=== PATIENT | female | born 1995 | race Caucasian/White ===

== ENCOUNTER 2020-03-21 15:43 | Emergency (ER) | payer OTHER, SELFPAY ==
--- NOTE | ~2020-03-21 | XR_ITS ---
EXAMINATION: XR ankle RT min 3V DATE: 03/21/2020 16:15 INDICATION: Lateral sided right ankle pain and swelling TECHNIQUE: Anteroposterior, oblique, mortise, and lateral views of the right ankle were obtained. COMPARISON: None. FINDINGS: Alignment is normal. No fracture. Joint spaces are well maintained. No ankle joint effusion. Mild s oft tissue swelling of the dorsum of the midfoot. IMPRESSION: 1. No osseous abnormality. Reviewed, dictated and finalized at location A. IMPRESSION: 1. No osseous abnormality.
[2020-03-21 15:48] VITALS: BP 143/94; PULSE 110; RESP 18; TEMP 36.6; O2SAT 98
--- NOTE | 2020-03-21 16:01 | ED.GENADULT ---
HPI - General Adult General Chief complaint: Extremity Injury, Lower Stated complaint: right ankle injury Time Seen by Provider: 03/21/20 15:44 Source: patient Mode of arrival: ambulatory Limitations: no limitations History of Present Illness HPI narrative: Patient is a 24-year-old female who presents to emergency department for evaluation of right ankle pain laterally that began after rolling the ankle just prior to arrival while walking normal patient denies other injuries or complaints has not taken anything for pain denies radicular symptoms or paresthesias. And is otherwise resting comfortably in the room in no distress upon arrival Related Data Allergies Allergy/AdvReac Type Severity Reaction Status Date / Time No Known Allergies Allergy Verified 03/21/20 15:49 Review of Systems Review of Systems: All systems reviewed & are unremarkable except as noted in HPI and below PMFSH Social History Social History (Updated 03/21/20 @ 16:03 by lAli Sam PA-C) Smoking status: Never smoker Gender identity (if verbalized by the patient): Female Exam Narrative: Exam Narrative: GENERAL: Well-appearing, well-nourished, and in no acute distress. HEAD: Normocephalic, atraumatic. EYES: PERRLA and EOMI. ENT: Nares clear, no rhinorrhea or epistaxis. Mucous membranes moist. EXTREMITIES: Normal range of motion. No edema. Tenderness of the lateral aspect of the right ankle no deformity noted SKIN: Warm, dry, no rash. NEURO: No focal deficits. Alert and oriented x3. Neurovascularly intact. Capillary refill less than 2 seconds PSYCH: Normal mood and affect. Course Vital Signs Vital signs: Vital Signs Temperature 97.9 F 03/21/20 15:48 Pulse Rate 110 H 03/21/20 15:48 Respiratory Rate 18 03/21/20 15:48 Blood Pressure 143/94 H 03/21/20 15:48 Pulse Oximetry 98 03/21/20 15:48 Temperature 97.9 F 03/21/20 15:48 Pulse Rate 110 H 03/21/20 15:48 Respiratory Rate 18 03/21/20 15:48 Blood Pressure 143/94 H 03/21/20 15:48 Pulse Oximetry 98 03/21/20 15:48 Medical Decision Making MDM Narrative Medical decision making narrative: Patients injury or pain is consistent with musculoskeletal etiology. No signs of neurological or vascular compromise on exam. Compartments and tisues are soft without signs of compartment syndrome. Pain is felt appropriate for further evaluation on an outpatient basis. Vital Signs Vital Signs: Vital Signs Temperature 97.9 F 03/21/20 15:48 Pulse Rate 110 H 03/21/20 15:48 Respiratory Rate 18 03/21/20 15:48 Blood Pressure 143/94 H 03/21/20 15:48 Pulse Oximetry 98 03/21/20 15:48 Temperature 97.9 F 03/21/20 15:48 Pulse Rate 110 H 03/21/20 15:48 Respiratory Rate 18 03/21/20 15:48 Blood Pressure 143/94 H 03/21/20 15:48 Pulse Oximetry 98 03/21/20 15:48 Imaging Data Radiologist's impression: ITS Impressions Ankle X-Ray 03/21/20 16:21 IMPRESSION: 1. No osseous abnormality. Discharge Plan Discharge Clinical Impression: Ankle sprain and strain Patient Disposition: Home, Self-Care Condition: Stable Instructions: Antibiotic Form, Ankle Sprain (ED) Additional Instructions: Wear Rony wrap with limited weight on the affected leg until able to bear weight without pain. Ice and elevate extremity. Pain medication as needed and directed. Follow up with your doctor for further care in the next 7 days. Return if symptoms worsen or concerns Follow-up/Referrals: UNKNOWN,DOCTOR [Primary Care Provider] - Laureano Michel MD [Physician] - Stand Alone Forms: Work/School Release IP
[2020-03-21] MEDS: IBUPROFEN 600 MG TABLET PO (16:06)
== END 2020-03-21 17:05 | disposition home or self-care (01) ==
PROVIDERS: Emergency Provider Emergency Medicine
DX: S93.401A Sprain of unspecified ligament of right ankle, initial encounter (principal); S96.911A Strain of unspecified muscle and tendon at ankle and foot level, right foot, initial encounter; X50.9XXA Other and unspecified overexertion or strenuous movements or postures, initial encounter
CPT/HCPCS: 73610; 99283; A9270

== ENCOUNTER 2023-02-23 13:34 | Emergency (ER) | payer BC, SELFPAY ==
--- NOTE | ~2023-02-23 | XR_ITS ---
AP view of the pelvis and AP and lateral views of the left hip Clinical history: Pain Findings: No acute fracture or dislocation is seen. Osseous alignment is anatomic. Bilateral hip and SI joint spaces are preserved. Soft tissues are unremarkable. Impression: No significant abnormality is seen. Reviewed, dictated and finalized at [facility]. Impression: No significant abnormality is seen.
[2023-02-23 13:42] VITALS: BP 116/64; PULSE 95; RESP 16; TEMP 36.9; O2SAT 99
[2023-02-23 15:22] LABS: Appearance Urine Cloudy (Clear); Bacteria Urine Rare /hpf; Bilirubin Urine Negative (Negative); Blood Urine Negative (Negative); Color Urine Yellow (Yellow); Glucose Urine UA Negative (Negative); Ketones Urine Trace mg/dL (Negative); Leukocyte Esterase Ur Negative LEU/UL (Negative); Nitrate Urine Negative (Negative); Non Pathogenic Casts 0-2; Protein Urine Negative (Negative); RBC Urine 0-2 /hpf (0-2); Squamous Epithelial Cell Urine Few /hpf (Few); WBC Urine 0-5 /hpf
[2023-02-23 15:26] LABS: Add Urine Microscopic? YES; Specific Grav Ur 1.039 (1.001-1.035)
[2023-02-23 15:32] VITALS: BP 110/76; PULSE 71; RESP 16; O2SAT 99
[2023-02-23 15:32] LABS: Basophils Absolute Auto 0.1 K/mm3 (0.0-0.1); Basophils Percent Auto 0.3 % (0.2-1.2); Eosinophils Absolute Auto 0.1 K/mm3 (0-0.3); Eosinophils Percent Auto 0.5 % (0-4.4); Hematocrit 34.2 % (37.0-47.0); Hemoglobin 11.3 g/dL (12.0-15.0); Immature Granulocyte Absolute 0.13 K/mm3 (0.00-0.031); Immature Granulocyte Percent A 0.9 % (0-0.5); Lymphocytes Absolute Auto 4.06 K/mm3 (0.9-3.2); Lymphocytes Percent Auto 27.1 % (18.3-44.2); Mean Corpuscular Hemoglobin 29.7 pg (26-34); Mean Platelet Volume 9.8 fl (7.4-10.4); Monocytes Absolute Auto 0.9 K/mm3 (0.1-0.6); Monocytes Percent Auto 5.9 % (2.6-8.5); Neutrophils Absolute Auto 9.8 K/mm3 (1.3-6.7); Neutrophils Percent Auto 65.3 % (45.5-73.1); Platelet Count Result 410 k/mm3 (150-375); Red Cell Distribution Width 12.8 % (11.5-14.5)
[2023-02-23 15:41] LABS: Anion Gap 8 mmol/L (8-16); Blood Urea Nitrogen 22 mg/dL (7-17); Calcium 8.1 mg/dL (8.4-10.2); Carbon Dioxide 26 mmol/L (22-30); Chloride 103 mmol/L (98-107); Estimated CRCL calculation 136 ml/min; Estimated Glomerular Filt Rate > 60; Glucose 92 mg/dL (65-110); Potassium 3.5 mmol/L (3.4-5.0); Sodium 137 mmol/L (137-145)
--- NOTE | 2023-02-23 17:07 | ED.LOWEXIN ---
HPI - Extremity Injury (Lower) General Chief Complaint: Extremity Injury, Lower Stated Complaint: left leg pain, no known injury Time Seen by Provider: 02/23/23 13:51 Source: patient Mode of arrival: ambulatory Limitations: no limitations History of Present Illness HPI Narrative: 27-year-old otherwise healthy here with complaints of left groin pain for past 1 week. Patient states that while she was at work she started having pain and its been ongoing since then. She states that she has seen her doctor was given pain medication with very minimal relief. She denies any fall. No previous history of hip injuries. complaint: other (Left groin pain) Onset (ago): week(s) Type of Injury: unknown Place: work Severity: moderate Relieving factors: nothing Exacerbating factors: nothing Other symptoms: none Related Data Allergies Allergy/AdvReac Type Severity Reaction Status Date / Time No Known Allergies Allergy Verified 02/23/23 13:52 Review of Systems Review of Systems: All systems reviewed & are unremarkable except as noted in HPI and below Constitutional: Constitutional: Reports no additional constitutional complaints Eyes: Eyes: Reports no additional eye complaints ENT: Reports system reviewed and no additional complaints, except as documented Cardiovascular: Cardiovascular: Reports no additional cardiovascular complaints Respiratory: Respiratory: Reports no additional respiratory complaints Musculoskeletal: Musculoskeletal: Reports as per HPI [facility] Social History Social History Smoking status: Never smoker Gender identity (if verbalized by the patient): Female Exam Narrative: GENERAL: Well-appearing, well-nourished, and in no acute distress. HEAD: Normocephalic, atraumatic. EYES: PERRLA and EOMI. NECK: Supple. CHEST: Clear to auscultation. No respiratory distress. HEART: Regular rate and rhythm. No murmur heard. Normal peripheral pulses. ABDOMEN: Soft, nontender, nondistended, normal active bowel sounds. EXTREMITIES: Normal range of motion. No edema. Pain and tenderness on palpation in the left inguinal area no masses felt SKIN: Warm, dry, no rash. NEURO: No focal deficits. Alert and oriented x3. PSYCH: Normal mood and affect. Course Course Emergency Course: Notified patient about her lab work and x-ray findings appears to be more groin strain advised her to take pain medication as prescribed. Vital Signs Vital signs: Vital Signs Temperature 36.9 C 02/23/23 13:42 Pulse Rate 95 02/23/23 13:42 Respiratory Rate 16 02/23/23 13:42 Blood Pressure 116/64 02/23/23 13:42 Pulse Oximetry 99 02/23/23 13:42 Oxygen Delivery Room Air 02/23/23 13:42 Temperature 36.9 C 02/23/23 13:42 Pulse Rate 71 02/23/23 15:32 Respiratory Rate 16 02/23/23 15:32 Blood Pressure 110/76 02/23/23 15:32 Pulse Oximetry 99 02/23/23 15:32 Oxygen Delivery Room Air 02/23/23 13:42 MDM - Extremity Injury (Lower) Differential Diagnosis Differential diagnosis: Likely fracture of hip Lab Data 02/23/23 15:10 02/23/23 15:10 Labs: Lab Results 02/23/23 02/23/23 Range/Units 15:08 15:10 WBC 15.0 H (4.5-10.0) K/mm3 RBC 3.80 L (4.2-5.4) M/mm3 Hgb 11.3 L (12.0-15.0) g/dL Hct 34.2 L (37.0-47.0) % MCV 90.0 (80-100) fl MCH 29.7 (26-34) pg MCHC 33.0 (32-36) g/dl RDW 12.8 (11.5-14.5) % Plt Count 410 H (150-375) k/mm3 MPV 9.8 (7.4-10.4) fl Immature Gran % (Auto) 0.9 H (0-0.5) % Neut % (Auto) 65.3 (45.5-73.1) % Lymph % (Auto) 27.1 (18.3-44.2) % Coffey % (Auto) 5.9 (2.6-8.5) % Eos % (Auto) 0.5 (0-4.4) % Baso % (Auto) 0.3 (0.2-1.2) % Lymph # (Auto) 4.06 H (0.9-3.2) K/mm3 Coffey # (Auto) 0.9 H (0.1-0.6) K/mm3 Eos # (Auto) 0.1 (0-0.3) K/mm3 Baso # (Auto) 0.1 (0.0-0.1) K/mm3 Abs Immat Gran (auto) 0.13 H (0.00-0.031) K/mm3 Abs
[2023-02-23 17:35] VITALS: RESP 16; O2SAT 97
== END 2023-02-23 17:36 | disposition home or self-care (01) ==
PROVIDERS: Emergency Provider Family Medicine; PCP Physician Assistant
DX: S39.011A Strain of muscle, fascia and tendon of abdomen, initial encounter (principal); X58.XXXA Exposure to other specified factors, initial encounter
CPT/HCPCS: 36415; 73502; 80048; 81001; 85025; 99283

== ENCOUNTER 2025-07-16 16:02 | Emergency (ER) | payer OTHER, SELFPAY ==
--- NOTE | ~2025-07-16 | XR_ITS ---
EXAMINATION: XR hand RT min 3V DATE: 07/16/2025 16:30 INDICATION: Right hand pain from punching a wall TECHNIQUE: 3 images of the right hand were obtained COMPARISON: None. FINDINGS: Questionable tiny triquetral fracture of indeterminate age. No other possible fracture identified. Mild joint space narrowing in the first metacarpophalangeal joint. [ No radiopaque foreign body.] [ No sclerotic bone lesions.] Soft tissue swelling about the right hand. 5 mm lucency in the head of the third metacarpal. IMPRESSION: 1. Questionable tiny triquetral fracture of indeterminate age. Correlate for point tenderness. 2. No other possible fracture identified. If symptoms persist or worsen consider a short-term follow-up study or additional imaging for further assessment. Reviewed, dictated and finalized at location Q. IMPRESSION: 1. Questionable tiny triquetral fracture of indeterminate age. Correlate for po int tenderness. 2. No other possible fracture identified. If symptoms persist or worsen consider a short-term follow-up study or addition al imaging for further assessment.
[2025-07-16 16:11] VITALS: BP 124/89; PULSE 105; RESP 20; TEMP 36.2; O2SAT 100
--- OUTSIDE RECORDS SUMMARY | 2025-07-16 17:00 | XMS_ITS | Clinical Summary ---
Author Organization [facility] Address [facility] [facility] [place] [address] Care Team Providers Care Frame Assembler Name Role Phone Blanca Elder MD Primary Care Provider [phone] Social History Tobacco Use Types Packs/Day Years Used Date Smoking Tobacco: Never Assessed Comments Unknown Sex and Gender Information Value Date Recorded Sex Assigned at Female 12/22/2023 9:05 AM [employer] Legal Sex Female 9:10 AM [employer] Gender Identity Not on file Sexual Orientation Not on file Plan of Treatment Health Maintenance Due Date Last Done Comments Hepatitis C Virus (HCV) Screening 1993 Pap Smear 2014 Cervical Cancer Screening (CCS) 2023 HPV/Cotest 2023 SARS-COV-2 Immunization ( season) 2024 Influenza Immunization (#1) 2025 11/19/2020 Respiratory Syncytial Virus (RSV) Immunization (Adult) (1 - 1-dose 75+ series) 2068 Hepatitis B Immunization Completed 994, 1993, 1993 DTaP/Tdap/Td Immunization Discontinued 2013, 06/01/2008, 06/01/2008, Additional history exists TdaP Immunization Completed 08/16/2014, 06/01/2008 Meningococcal Immunization (ACWY) Aged Out 01/10/2018, 06/01/2008, 03/01/2008 No longer eligible based on patient's age to complete this topic Human Papillomavirus (HPV) Immunization Completed 11/19/2020, 04/13/2019, 01/10/2018 Pneumococcal Immunization Combined Aged Out No longer eligible based on patient's age to complete this topic Rotavirus Immunization Aged Out No lo nger eligible based on patient's age to complete this topic Insurance MEDICAID BLUE [place]OSS [place] Care Teams Frame Assembler Relationship Specialty Start Date End Date Blanca Elder MD PCP - General Family Medicine 12/07/23
--- NOTE | 2025-07-16 17:11 | ED.UPPEXIN ---
HPI - Extremity Injury (Upper) General Chief Complaint: Extremity Injury, Upper Stated Complaint: R hand injury last Sat Time Seen by Provider: 07/16/25 16:07 Source: patient Mode of arrival: ambulatory Limitations: no limitations History of Present Illness HPI narrative: This is a 30 year old female that presents to the ER for right hand injury sustained 2 days ago. Reports she hit a wall. Reports swelling and pain to the area. Denies decreased ROM or numbness. Related Data Home Medications ?Medication ?Instructions ?Recorded ?Confirmed ?Last Taken ?Type acetaminophen 500 mg capsule 500 mg PO Q8H PRN pain 07/16/25 07/16/25 07/15/25 History aspirin 325 mg capsule 325 mg PO DAILY 07/16/25 07/16/25 07/16/25 History atorvastatin 20 mg tablet (Lipitor) 20 mg PO QPM 07/16/25 07/16/25 07/15/25 History cyanocobalamin (vitamin B-12) 1,000 mcg PO DAILY 07/16/25 07/16/25 07/16/25 History 1,000 mcg capsule ergocalciferol (vitamin D2) 1,250 1,250 mcg PO WEEKLY 07/16/25 07/16/25 Unknown History mcg (50,000 unit) capsule ferrous sulfate 325 mg (65 mg 325 mg PO BID 07/16/25 07/16/25 07/15/25 History iron) tablet (Feosol) gabapentin 100 mg capsule 100 mg PO DAILY 07/16/25 07/16/25 07/16/25 History lidocaine 4 % topical patch 1 patch topical BID PRN pain 07/16/25 07/16/25 Unknown History (Aspercreme (lidocaine)) lisinopril 40 mg tablet 40 mg PO DAILY 07/16/25 07/16/25 07/16/25 History methocarbamol 750 mg tablet 750 mg PO HS PRN sleep 07/16/25 07/16/25 Unknown History multivitamin (Daily Multi-Vitamin 1 tablet PO DAILY 07/16/25 07/16/25 07/16/25 History tablet) omeprazole 20 mg capsule,delayed 20 mg PO DAILY 07/16/25 07/16/25 07/16/25 History release potassium chloride 20 mEq 20 meq PO BID 07/16/25 07/16/25 07/16/25 History tablet,extended release(part/cryst) (Klor-Con M) rivaroxaban 20 mg tablet (Xarelto) 20 mg PO DAILY 07/16/25 07/16/25 07/16/25 History tamsulosin 0.4 mg capsule (Flomax) 0.4 mg PO DAILY 07/16/25 07/16/25 07/16/25 History Allergies Allergy/AdvReac Type Severity Reaction Status Date / Time No Known Allergies Allergy Verified 07/16/25 16:34 Review of Systems Review of Systems: All systems reviewed & are unremarkable except as noted in HPI and below PMFSH Past Medical History Medical History (Updated 07/16/25 @ 17:25 by Jess Carvajal PA-C) Hypertension Social History Social History Smoking status: Never smoker Gender identity (if verbalized by the patient): Female Exam Narrative: GENERAL: Well-appearing, well-nourished, and in no acute distress. HEAD: Normocephalic, atraumatic. EYES: EOMI. EXTREMITIES: Normal range of motion. No edema or obvious deformity. Normal radial pulse. Normal sensation SKIN: Warm, dry, no rash. NEURO: No focal deficits. Alert and oriented x3. PSYCH: Normal mood and affect Course Vital Signs Vital signs: Vital Signs Temperature 97.1 F L 07/16/25 16:11 Pulse Rate 105 H 07/16/25 16:11 Respiratory Rate 07/16/25 16:11 Blood Pressure 124/89 07/16/25 16:11 Pulse Oximetry 100 07/16/25 16:11 Oxygen Delivery Room Air 07/16/25 16:11 Temperature 97.1 F L 07/16/25 16:11 Pulse Rate 105 H 07/16/25 16:11 Respiratory Rate 07/16/25 16:11 Blood Pressure 124/89 07/16/25 16:11 Pulse Oximetry 100 07/16/25 16:11 Oxygen Delivery Room Air 07/16/25 16:11 Procedures Orthopedic Splinting/Casting Injury #1: Splinting/Casting Date: 07/16/25 Splinting/Casting Time: 17:16 Side: right Upper Extremity Injury Location: hand Splint: customized in ED OCL: ulnar gutter Pre-Procedure Neuro Vascular Exam: normal Post-Procedure Neuro Vascular Exam: normal MDM - Extremity Injury (Upper) MDM Narrative Medical decision making narrative: Patient presents to the emergency department for right hand pain after an injury 2 days prior to arrival. Patient is neurovascularly intact. Right hand x-ray shows a possible triquetral fracture. Patient placed in an ulnar gutter. Will be given follow-up with Orthopedics. She was given warnings to return to the ER Differential Diagnosis Differential diagnosis: Likely fracture of wrist, fracture of hand and other (contusion) Imaging Data Radiologist's impression: ITS Impressions Hand X-Ray 07/16/25 16:41 IMPRESSION: 1. Questionable tiny triquetral fracture of indeterminate age. Correlate for point tenderness. 2. No other possible fracture identified. If symptoms persist or worsen consider a short-term follow-up study or additional imaging for further assessment. Critical Care Time Critical Care Time Critical Care Time: No Discharge Plan Discharge Clinical Impression: Fracture of triquetral bone of right wrist Patient Disposition: Home Condition: Stable Instructions: Wrist Fracture in Adults (ED) Additional Instructions: Return to the ER if you experience fever, redness and swelling of your extremity, numbness or any other symptoms that are concerning to you Wear splint. Ice and elevate extremity. Over the counter pain medication as needed. Prescribed pain medication as needed Follow up with orthopedics for further care. Patient Language: Serbian Prescriptions: New hydrocodone-acetaminophen 5-325 mg tablet 1 tablet PO Q6H PRN (Reason: pain) Qty: 14 0RF No Action aspirin 325 mg capsule 325 mg PO DAILY atorvastatin [Lipitor] 20 mg tablet 20 mg PO QPM gabapentin 100 mg capsule 100 mg PO DAILY lisinopril 40 mg tablet 40 mg PO DAILY multivitamin [Daily Multi-Vitamin] Tablet 1 tablet PO DAILY omeprazole 20 mg capsule,delayed release(DR/EC) 20 mg PO DAILY potassium chloride [Klor-Con M20] 20 mEq tablet,ER particles/crystals 20 meq PO BID tamsulosin [Flomax] 0.4 mg capsule 0.4 mg PO DAILY cyanocobalamin (vitamin B-12) 1,000 mcg capsule 1,000 mcg PO DAILY Xarelto 20 mg tablet 20 mg PO DAILY Rx Instructions: must administer with evening meal ergocalciferol (vitamin D2) 1,250 mcg (50,000 unit) capsule 1,250 mcg PO WEEKLY ferrous sulfate [Feosol] 325 mg (65 mg iron) tablet 325 mg PO BID methocarbamol 750 mg tablet 750 mg PO HS PRN (Reason: sleep) acetaminophen 500 mg capsule 500 mg PO Q8H PRN (Reason: pain) lidocaine [Aspercreme (lidocaine)] 4 % adhesive patch,medicated 1 patch topical BID PRN (Reason: pain) Follow-up/Referrals: Jael,Blanca Thacker MD [Primary Care Provider, Unknown] Stanley Espana MD [Physician, Orthopedics]
== END 2025-07-16 17:36 | disposition home or self-care (01) ==
PROVIDERS: Emergency Provider Physician Assistant; PCP Emergency Medicine
DX: S62.111A Displaced fracture of triquetrum [cuneiform] bone, right wrist, initial encounter for closed fracture (principal); I10 Essential (primary) hypertension; W22.01XA Walked into wall, initial encounter
CPT/HCPCS: 29125; 73130; 99284